=== PATIENT | male | born 1985 | race African-American/Black ===

== ENCOUNTER 2020-05-22 20:04 | Emergency (ER) | payer MEDICAID, OTHER ==
[~2020-05-22] VITALS: Ht 182.9 cm; Wt 84.0 kg
[2020-05-22] MEDS ORDERED: KETOROLAC 30MG/ML VIAL IM ONE (21:45)
[2020-05-22 22:05] VITALS: BP 127/75
== END 2020-05-22 23:39 | disposition home or self-care (01) ==
LOC: ER 20:04
DX: M54.2 Cervicalgia (principal)
CPT/HCPCS: 71045; 72040; 72100; 96372; 99284; J1885

== ENCOUNTER 2020-07-01 02:19 | Emergency (ER) | payer MEDICAID ==
[~2020-07-01] VITALS: Ht 182.9 cm; Wt 84.0 kg
[2020-07-01] MEDS ORDERED: KETOROLAC 30MG/ML VIAL IM ONE (08:30)
[2020-07-01 09:37] VITALS: BP 132/90
== END 2020-07-01 09:39 | disposition home or self-care (01) ==
LOC: ER 02:39
DX: M54.5 Low back pain (principal); V43.92XA Unspecified car occupant injured in collision with other type car in traffic accident, initial encounter; Y93.89 Activity, other specified; Y92.488 Other paved roadways as the place of occurrence of the external cause
CPT/HCPCS: 96372; 99283; J1885

== ENCOUNTER 2021-04-11 14:10 | Emergency (ER) | payer MEDICAID ==
[~2021-04-11] VITALS: Ht 182.9 cm; Wt 84.0 kg
[2021-04-11 14:26] VITALS: BP 133/82
== END 2021-04-11 21:49 | disposition left against medical advice (07) ==
LOC: ER 14:42
DX: R68.89 Other general symptoms and signs (principal); Z53.21 Procedure and treatment not carried out due to patient leaving prior to being seen by health care provider
CPT/HCPCS: 93005

== ENCOUNTER 2022-05-31 12:04 | Emergency (ER) | payer MEDICAID ==
[~2022-05-31] VITALS: Ht 177.8 cm; Wt 73.0 kg
[2022-05-31] MEDS ORDERED: NAPR-1176 MT (13:00)
[2022-05-31] MEDS ORDERED: KETOROLAC 30MG/ML VIAL IM ONE (13:00)
[2022-05-31 13:21] VITALS: BP 122/85
== END 2022-05-31 13:26 | disposition home or self-care (01) ==
LOC: ER 12:04
DX: M25.511 Pain in right shoulder (principal); M54.50 Low back pain, unspecified
CPT/HCPCS: 96372; 99283; J1885

== ENCOUNTER 2022-06-05 00:18 | Emergency (ER) | payer MEDICAID, OTHER ==
[~2022-06-05 00:18] MED LIST: NAPR-1176 MT
== END 2022-06-05 01:50 | disposition left against medical advice (07) ==
LOC: ER 00:29
DX: Z53.21 Procedure and treatment not carried out due to patient leaving prior to being seen by health care provider (principal)

== ENCOUNTER 2023-10-10 10:54 | Emergency (ER) | payer OTHER ==
[~2023-10-10] VITALS: Ht 177.8 cm; Wt 82.0 kg
[2023-10-10 11:05] VITALS: O2SAT 99
[2023-10-10 15:26] LABS: BASOPHILS % 0.3 % (0.0-2.0); EOSINOPHILS % 0.3 % (0.0-5.0); HEMATOCRIT. 41.6 % (42.0-52.0); HEMOGLOBIN. 13.8 g/dL (14.0-18.0); LYMPHOCYTES % 9.2 % (20.0-50.0); MEAN CORPUSCULAR HEMOGLOBIN 27.1 pg (28.0-32.0); MEAN CORPUSCULAR HGB CONC 33.1 g/dL (31.0-37.0); MEAN CORPUSCULAR VOLUME 81.8 fL (80.0-94.0); MEAN PLATELET VOLUME 8.9 fl (7.4-10.4); MONOCYTES % 9.3 % (2.0-8.0); NEUTROPHILS % 80.9 % (40.0-76.0); PLATELET 235 x1000/uL (130-400); RED BLOOD CELL COUNT 5.09 mill/uL (4.7-6.1); RED CELL DISTRIBUTION WIDTH 15.1 % (11.6-14.6); WHITE BLOOD COUNT 11.9 x1000/uL (4.5-11.0)
[2023-10-10 15:48] LABS: CLARITY URINE TURBID (CLEAR); COLOR URINE ORANGE (YELLOW); GLUCOSE URINE 2+ (NEGATIVE); KETONES URINE NEGATIVE (NEGATIVE); LEUKOCYTE ESTERASE URINE 2+ (NEGATIVE); NITRITE URINE NEGATIVE (NEGATIVE); OCCULT BLOOD URINE 3+ (NEGATIVE); PH URINE 8.5 (4.5-8.0); PROTEIN URINE 2+ (NEGATIVE); SPECIFIC GRAVITY URINE 1.025 (1.005-1.030)
[2023-10-10 16:01] LABS: BACTERIA URINE 2+; RBC URINE TNTC /hpf (0-2); SQUAMOUS EPITHELIAL CELL URINE FEW /lpf (RARE/1+)
[2023-10-10 16:02] LABS: ALANINE AMINOTRANSFERASE 12 IU/L (10-49); ALBUMIN 4.4 g/dL (3.2-4.8); ASPARTATE AMINOTRANSFERASE 13 IU/L (<34); BILIRUBIN TOTAL 0.4 mg/dL (0.1-1.0); CALCIUM 9.4 mg/dL (8.7-10.4); CARBON DIOXIDE 23 mEq/L (21-32); CHLORIDE 104 mEq/L (98-107); CREATININE 0.9 mg/dL (0.6-1.3); GLUCOSE 118 mg/dL (70-105); POTASSIUM 3.7 mEq/L (3.5-5.1); PROTEIN TOTAL 8.2 g/dL (6.0-8.3); SODIUM 135 mEq/L (136-145)
[2023-10-10 16:11] LABS: UREA NITROGEN BLOOD < 5 mg/dL (9-23)
[2023-10-10] MEDS: CEFTRIAXONE 1GM/50ML 50 ML IV ONE (17:08)
[2023-10-10] MEDS: SODIUM CHLORIDE 0.9% 1,000 ML IV ONE (17:08)
[2023-10-10] MEDS ORDERED: CEFP200T13 MT (17:55)
[2023-10-10 19:08] VITALS: BP 121/82; PULSE 60; RESP 14; TEMP 98.6
[2023-10-13 04:10] LABS: CHLAMYDIA TRACHOMATIS NAA Negative (Negative); NEISSERIA GONORRHOEAE NAA Positive (Negative)
== END 2023-10-10 19:12 | disposition home or self-care (01) ==
LOC: ER 10:54
DX: N39.0 Urinary tract infection, site not specified (principal); R33.9 Retention of urine, unspecified
CPT/HCPCS: 87491; 87591; 80053; 81003; 85025; 87086; 36415; 51702; 96365; 99284; J0696; J7030; Z7610 ×3